=== PATIENT | female | born 1965 | race Caucasian/White ===

== ENCOUNTER 2019-11-19 20:31 | Inpatient (IN) | payer MEDICAID ==
[~2019-11-19] VITALS: Ht 154.9 cm; Wt 84.4 kg
[2019-11-19] MEDS ORDERED: KETOROLAC 30MG/ML VIAL IV STA (21:38)
[2019-11-19] MEDS ORDERED: ONDANSETRON HCL 4MG/2ML INJ IV STA (21:38)
[2019-11-19] MEDS ORDERED: SODIUM CHLORIDE 0.9% 1,000 ML IV ONE (21:38)
[2019-11-19 23:40] LABS: BASOPHILS % 0.3 % (0.0-2.0); EOSINOPHILS % 0.1 % (0.0-5.0); HEMATOCRIT. 37.6 % (36.0-48.0); HEMOGLOBIN. 12.5 g/dL (12.0-16.0); LYMPHOCYTES % 22.9 % (20.0-50.0); MEAN CORPUSCULAR HEMOGLOBIN 27.1 pg (28.0-32.0); MEAN CORPUSCULAR VOLUME 81.6 fL (81.0-99.0); MEAN PLATELET VOLUME 9.1 fl (7.4-10.4); MONOCYTES % 2.8 % (2.0-8.0); NEUTROPHILS % 73.9 % (40.0-76.0); PLATELET 154 x1000/uL (130-400)
[2019-11-19 23:46] LABS: CHLORIDE 102 mEq/L (98-107)
[2019-11-20 04:20] VITALS: BP 186/59
[2019-11-20] MEDS ORDERED: METF-416 PO (06:22)
[2019-11-20] MEDS ORDERED: SYN150 PO (06:22)
[2019-11-20] MEDS ORDERED: HYDROCODONE/ACETAMINOPHEN 10/325MG TABLET PO PRN (07:00)
[2019-11-20] MEDS ORDERED: ALBUTEROL 6.7GM HFA INHALER ORI PRN (07:00)
[2019-11-20] MEDS ORDERED: ENOXAPARIN 40MG/0.4ML SYR SUBCUT SCH (07:00)
[2019-11-20] MEDS ORDERED: ONDANSETRON HCL 4MG/2ML INJ IV PRN (07:00)
[2019-11-20] MEDS ORDERED: DIPHENHYDRAMINE 50MG/ML VIAL IV PRN (07:00)
[2019-11-20] MEDS ORDERED: DEXTROSE 50% WATER 50ML SYRINGE IV PRN (07:00)
[2019-11-20] MEDS ORDERED: CLONIDINE 0.1MG TABLET PO PRN (07:00)
[2019-11-20] MEDS ORDERED: MAGNESIUM/ALUMINUM HYDROXIDE/SIMETHICONE 30ML UDC PO PRN (07:00)
[2019-11-20] MEDS ORDERED: HYDRALAZINE 20MG/ML VIAL IV PRN (07:00)
[2019-11-20] MEDS ORDERED: LORAZEPAM 2MG/ML CPJ IV PRN (07:00)
[2019-11-20] MEDS ORDERED: MORPHINE SULFATE 2 MG/ML CPJ (NOT FOR IM USE) IV PRN (07:00)
[2019-11-20] MEDS ORDERED: CEFTRIAXONE 1 G PREMIX 50 ML IV SCH (07:00)
[2019-11-20] MEDS: ACETAMINOPHEN 325MG TABLET PO PRN ×2 (07:10→13:26)
[2019-11-20] MEDS: LEVOTHYROXINE SODIUM 150MCG TABLET PO SCH (07:20)
[2019-11-20 08:00] VITALS: BP 134/54
[2019-11-20] MEDS: INSULIN LISPRO 100 UNITS/ML SUBCUT SCH ×4 (08:04→20:45)
[2019-11-20] MEDS: BLOOD SUGAR DIAGNOSTIC STRIP TEST SCH ×4 (08:04→20:35)
[2019-11-20] MEDS: CEFTRIAXONE 1,000 MG in DEXTROSE 5% WATER 50 ML IV SCH (08:55)
[2019-11-20] MEDS ORDERED: ENOXAPARIN 30MG/0.3ML SYR SUBCUT SCH (09:00)
[2019-11-20] MEDS: AZITHROMYCIN 500 MG in DEXT 5% WATER 250 ML IV SCH (09:49)
[2019-11-20 12:00] VITALS: BP 112/56
[2019-11-20] MEDS ORDERED: PNEUMOCOCCAL 23-VAL P-SAC VAC 0.5 ML IM ONE (12:00)
[2019-11-20] MEDS: SODIUM CHLORIDE 0.9% INJ 3ML FLUSH IVF SCH ×2 (13:15→20:35)
[2019-11-20] MEDS ORDERED: DEXAMETHASONE 2MG TABLET PO SCH (14:00)
[2019-11-20 14:47] LABS: T4 FREE 1.24 ng/dL (0.76-1.46)
[2019-11-20] MEDS: DEXAMETHASONE 4MG TABLET PO SCH (15:11)
[2019-11-20 16:00] VITALS: BP 122/65
[2019-11-20] MEDS: ALBUTEROL 6.7GM HFA INHALER ORI SCH ×2 (17:07→23:50)
[2019-11-20] MEDS: ENOXAPARIN 100MG/ML SYR SUBCUT SCH (17:26)
[2019-11-20 20:00] VITALS: BP 146/71
[2019-11-21 00:02] VITALS: BP 101/43
[2019-11-21 04:00] VITALS: BP 117/54
[2019-11-21] MEDS: ALBUTEROL 6.7GM HFA INHALER ORI SCH ×3 (05:31→17:01)
[2019-11-21] MEDS: BLOOD SUGAR DIAGNOSTIC STRIP TEST SCH ×4 (05:35→21:04)
[2019-11-21] MEDS: SODIUM CHLORIDE 0.9% INJ 3ML FLUSH IVF SCH ×3 (05:36→23:29)
[2019-11-21 08:06] VITALS: BP 131/61
[2019-11-21] MEDS: ENOXAPARIN 100MG/ML SYR SUBCUT SCH ×2 (08:14→21:03)
[2019-11-21] MEDS: CEFTRIAXONE 1,000 MG in DEXTROSE 5% WATER 50 ML IV SCH (08:14)
[2019-11-21] MEDS: LEVOTHYROXINE SODIUM 150MCG TABLET PO SCH (08:14)
[2019-11-21] MEDS: DEXAMETHASONE 4MG TABLET PO SCH (08:14)
[2019-11-21] MEDS: INSULIN LISPRO 100 UNITS/ML SUBCUT SCH ×4 (08:15→23:28)
[2019-11-21 08:59] LABS: BASOPHILS % 0.3 % (0.0-2.0); HEMATOCRIT. 33.5 % (36.0-48.0); HEMOGLOBIN. 11.6 g/dL (12.0-16.0); LYMPHOCYTES % 19.7 % (20.0-50.0); MEAN CORPUSCULAR HEMOGLOBIN 27.4 pg (28.0-32.0); MEAN CORPUSCULAR VOLUME 79.4 fL (81.0-99.0); MEAN PLATELET VOLUME 8.7 fl (7.4-10.4); MONOCYTES % 3.8 % (2.0-8.0); NEUTROPHILS % 76.2 % (40.0-76.0); PLATELET 165 x1000/uL (130-400); RED BLOOD CELL COUNT 4.22 mill/uL (4.2-5.4); RED CELL DISTRIBUTION WIDTH 14.9 % (11.6-14.6)
[2019-11-21] MEDS: AZITHROMYCIN 500 MG in DEXT 5% WATER 250 ML IV SCH (09:14)
[2019-11-21 09:40] LABS: CHLORIDE 101 mEq/L (98-107)
[2019-11-21 11:31] VITALS: BP 128/65
[2019-11-21 16:00] VITALS: BP 122/72
[2019-11-21 20:00] VITALS: BP 137/62
[2019-11-21] MEDS: ACETAMINOPHEN 325MG TABLET PO PRN (21:03)
[2019-11-22] VITALS: BP 128/54
[2019-11-22] MEDS: ALBUTEROL 6.7GM HFA INHALER ORI SCH ×4 (00:04→18:07)
[2019-11-22 04:00] VITALS: BP 131/57
[2019-11-22] MEDS: SODIUM CHLORIDE 0.9% INJ 3ML FLUSH IVF SCH ×3 (06:35→21:32)
[2019-11-22] MEDS: DOCUSATE SODIUM 100MG CAPSULE PO PRN ×2 (06:46→21:26)
[2019-11-22] MEDS: BLOOD SUGAR DIAGNOSTIC STRIP TEST SCH ×4 (07:28→21:17)
[2019-11-22] MEDS: INSULIN LISPRO 100 UNITS/ML SUBCUT SCH ×4 (07:28→21:27)
[2019-11-22] MEDS: LEVOTHYROXINE SODIUM 150MCG TABLET PO SCH (08:02)
[2019-11-22] MEDS: DEXAMETHASONE 4MG TABLET PO SCH (08:03)
[2019-11-22] MEDS: CEFTRIAXONE 1,000 MG in DEXTROSE 5% WATER 50 ML IV SCH (08:03)
[2019-11-22] MEDS: ENOXAPARIN 100MG/ML SYR SUBCUT SCH ×2 (08:03→21:26)
[2019-11-22] MEDS: GUAIFENESIN 200MG/10ML SUGAR FREE UDC PO PRN (08:03)
[2019-11-22 08:20] VITALS: BP 151/72
[2019-11-22 08:30] LABS: PROTHROMBIN TIME 10.9 sec (9.6-11.0)
[2019-11-22] MEDS: AZITHROMYCIN 500 MG in DEXT 5% WATER 250 ML IV SCH (08:35)
[2019-11-22 12:13] VITALS: BP 119/53
[2019-11-22 16:15] VITALS: BP 113/57
[2019-11-22] MEDS ORDERED: REMDESIVIR 200 MG in SODIUM CHLORIDE 0.9% 250 ML IV SCH (17:00)
[2019-11-22 20:00] VITALS: BP 133/57
[2019-11-23] VITALS: BP 127/56
[2019-11-23] MEDS: ALBUTEROL 6.7GM HFA INHALER ORI SCH ×4 (00:29→17:03)
[2019-11-23 04:00] VITALS: BP 120/47
[2019-11-23] MEDS: GUAIFENESIN 200MG/10ML SUGAR FREE UDC PO PRN ×5 (04:34→21:14)
[2019-11-23] MEDS: SODIUM CHLORIDE 0.9% INJ 3ML FLUSH IVF SCH ×3 (05:59→21:14)
[2019-11-23] MEDS: INSULIN LISPRO 100 UNITS/ML SUBCUT SCH ×4 (05:59→21:42)
[2019-11-23] MEDS: BLOOD SUGAR DIAGNOSTIC STRIP TEST SCH ×4 (07:40→21:14)
[2019-11-23 08:00] VITALS: BP 124/55
[2019-11-23] MEDS: DEXAMETHASONE 4MG TABLET PO SCH (08:37)
[2019-11-23] MEDS: LEVOTHYROXINE SODIUM 150MCG TABLET PO SCH (08:37)
[2019-11-23] MEDS: AZITHROMYCIN 500 MG in DEXT 5% WATER 250 ML IV SCH (08:38)
[2019-11-23] MEDS: CEFTRIAXONE 1,000 MG in DEXTROSE 5% WATER 50 ML IV SCH (08:38)
[2019-11-23] MEDS: ENOXAPARIN 100MG/ML SYR SUBCUT SCH ×2 (08:39→21:16)
[2019-11-23] MEDS: ACETAMINOPHEN 325MG TABLET PO PRN ×2 (09:52→23:35)
[2019-11-23 12:00] VITALS: BP 125/51
[2019-11-23 13:03] LABS: CHLORIDE 100 mEq/L (98-107)
[2019-11-23] MEDS: DOCUSATE SODIUM 100MG CAPSULE PO PRN (13:03)
[2019-11-23 16:00] VITALS: BP 105/52
[2019-11-23] MEDS: REMDESIVIR 100 MG in SODIUM CHLORIDE 0.9% 250 ML IV SCH (17:03)
[2019-11-23 20:00] VITALS: BP 127/51
[2019-11-24] VITALS: BP 123/54
[2019-11-24] MEDS: ALBUTEROL 6.7GM HFA INHALER ORI SCH ×5 (00:13→23:34)
[2019-11-24 04:00] VITALS: BP 130/54
[2019-11-24] MEDS: SODIUM CHLORIDE 0.9% INJ 3ML FLUSH IVF SCH ×3 (05:26→21:26)
[2019-11-24] MEDS: GUAIFENESIN 200MG/10ML SUGAR FREE UDC PO PRN ×5 (06:03→23:53)
[2019-11-24] MEDS: BLOOD SUGAR DIAGNOSTIC STRIP TEST SCH ×4 (07:40→21:26)
[2019-11-24 08:00] VITALS: BP 136/40
[2019-11-24] MEDS: INSULIN LISPRO 100 UNITS/ML SUBCUT SCH ×4 (08:10→21:25)
[2019-11-24] MEDS: DEXAMETHASONE 4MG TABLET PO SCH (08:16)
[2019-11-24] MEDS: LEVOTHYROXINE SODIUM 150MCG TABLET PO SCH (08:16)
[2019-11-24] MEDS: ENOXAPARIN 100MG/ML SYR SUBCUT SCH ×2 (08:17→21:26)
[2019-11-24] MEDS: CEFTRIAXONE 1,000 MG in DEXTROSE 5% WATER 50 ML IV SCH (08:17)
[2019-11-24] MEDS: AZITHROMYCIN 500 MG in DEXT 5% WATER 250 ML IV SCH (08:59)
[2019-11-24] MEDS: ACETAMINOPHEN 325MG TABLET PO PRN ×2 (09:06→17:38)
[2019-11-24 12:00] VITALS: BP 132/50
[2019-11-24 12:06] LABS: CHLORIDE 102 mEq/L (98-107)
[2019-11-24 16:00] VITALS: BP 132/58
[2019-11-24] MEDS: REMDESIVIR 100 MG in SODIUM CHLORIDE 0.9% 250 ML IV SCH (17:10)
[2019-11-24 20:00] VITALS: BP 117/60
[2019-11-25] VITALS: BP 142/50
[2019-11-25 03:42] LABS: CLARITY URINE CLEAR (CLEAR); COLOR URINE YELLOW (YELLOW); KETONES URINE NEGATIVE (NEGATIVE); LEUKOCYTE ESTERASE URINE NEGATIVE (NEGATIVE); NITRITE URINE NEGATIVE (NEGATIVE); OCCULT BLOOD URINE NEGATIVE (NEGATIVE); PH URINE 6.5 (4.5-8.0); PROTEIN URINE TRACE (NEGATIVE)
[2019-11-25 03:53] LABS: *BARBITURATES SCREEN URINE NEGATIVE (NEGATIVE); *BENZODIAZEPINES SCREEN URINE NEGATIVE (NEGATIVE)
[2019-11-25 03:54] LABS: *AMPHETAMINES SCREEN URINE NEGATIVE (NEGATIVE); CANNABINOID URINE SCREEN NEGATIVE (NEGATIVE); METHADONE URINE SCREEN NEGATIVE (NEGATIVE); OPIATES URINE SCREEN NEGATIVE (NEGATIVE); PHENCYCLIDINE URINE SCREEN NEGATIVE (NEGATIVE)
[2019-11-25 04:00] VITALS: BP 122/80
[2019-11-25 04:27] LABS: *COCAINE SCREEN URINE NEGATIVE (NEGATIVE)
[2019-11-25] MEDS: SODIUM CHLORIDE 0.9% INJ 3ML FLUSH IVF SCH ×3 (05:14→20:36)
[2019-11-25] MEDS: ALBUTEROL 6.7GM HFA INHALER ORI SCH ×3 (05:14→17:50)
[2019-11-25] MEDS: BLOOD SUGAR DIAGNOSTIC STRIP TEST SCH ×4 (05:37→20:36)
[2019-11-25] MEDS: INSULIN LISPRO 100 UNITS/ML SUBCUT SCH ×4 (06:00→21:08)
[2019-11-25 06:48] LABS: CHLORIDE 106 mEq/L (98-107)
[2019-11-25 08:00] VITALS: BP 154/79
[2019-11-25] MEDS: GUAIFENESIN 200MG/10ML SUGAR FREE UDC PO PRN ×3 (08:53→21:09)
[2019-11-25] MEDS: ENOXAPARIN 100MG/ML SYR SUBCUT SCH (08:54)
[2019-11-25] MEDS: LEVOTHYROXINE SODIUM 150MCG TABLET PO SCH (08:54)
[2019-11-25] MEDS: DOCUSATE SODIUM 100MG CAPSULE PO PRN ×2 (08:59→13:06)
[2019-11-25 12:00] VITALS: BP 140/66
[2019-11-25] MEDS: ACETAMINOPHEN 325MG TABLET PO PRN ×2 (13:07→21:13)
[2019-11-25 16:00] VITALS: BP 130/67
[2019-11-25] MEDS: REMDESIVIR 100 MG in SODIUM CHLORIDE 0.9% 250 ML IV SCH (17:00)
[2019-11-25 20:00] VITALS: BP 120/68
[2019-11-25] MEDS: ENOXAPARIN 80MG/0.8ML SYR SUBCUT SCH (20:36)
[2019-11-26] VITALS: BP 129/70
[2019-11-26] MEDS: ALBUTEROL 6.7GM HFA INHALER ORI SCH ×3 (00:10→13:31)
[2019-11-26 04:00] VITALS: BP 127/68
[2019-11-26] MEDS: BLOOD SUGAR DIAGNOSTIC STRIP TEST SCH ×2 (05:50→12:40)
[2019-11-26] MEDS: SODIUM CHLORIDE 0.9% INJ 3ML FLUSH IVF SCH ×2 (05:50→14:33)
[2019-11-26] MEDS: INSULIN LISPRO 100 UNITS/ML SUBCUT SCH ×2 (05:56→12:42)
[2019-11-26 06:19] LABS: CHLORIDE 107 mEq/L (98-107)
[2019-11-26 08:00] VITALS: BP 141/55
[2019-11-26] MEDS: GUAIFENESIN 200MG/10ML SUGAR FREE UDC PO PRN (08:38)
[2019-11-26] MEDS: ENOXAPARIN 80MG/0.8ML SYR SUBCUT SCH (08:38)
[2019-11-26] MEDS: LEVOTHYROXINE SODIUM 150MCG TABLET PO SCH (08:38)
[2019-11-26] MEDS ORDERED: DEXAMETHASONE 4MG TABLET PO SCH (09:00)
[2019-11-26 12:00] VITALS: BP 131/60
[2019-11-26] MEDS: REMDESIVIR 100 MG in SODIUM CHLORIDE 0.9% 250 ML IV SCH (14:32)
== END 2019-11-26 17:20 | disposition home or self-care (01) | DRG 720 ==
LOC: ER 20:31 → EDBEDREQ 11-20 01:01 → ENRESERV 11-20 01:38 → 7WST 11-20 04:55
PROVIDERS: ADMIT Internal Medicine; ATTEND Internal Medicine
PROC: XW033E5 Introduction of Remdesivir Anti-infective into Peripheral Vein, Percutaneous Approach, New Technology Group 5 (ICD-10-PCS; principal; 2019-11-22)
DX: A41.89 Other specified sepsis (principal); U07.1 COVID-19; E78.5 Hyperlipidemia, unspecified; I10 Essential (primary) hypertension; J12.89 Other viral pneumonia; J96.00 Acute respiratory failure, unspecified whether with hypoxia or hypercapnia; E03.9 Hypothyroidism, unspecified; E11.9 Type 2 diabetes mellitus without complications; C55 Malignant neoplasm of uterus, part unspecified; F41.9 Anxiety disorder, unspecified; R74.0 Nonspecific elevation of levels of transaminase and lactic acid dehydrogenase [LDH]; Z79.84 Long term (current) use of oral hypoglycemic drugs; Z85.42 Personal history of malignant neoplasm of other parts of uterus; Z79.890 Hormone replacement therapy; Z92.3 Personal history of irradiation; Z79.899 Other long term (current) drug therapy
CPT/HCPCS: 36415; 71045; 80053; 80305; 81003; 82962; 83036; 83880; 84439; 84443; 84481; 84484; 85025; 87635; 90732; 93005; 99285; J0456; J0696; J1650; J1815; J1885; J2405; J7030; J7050; J7060; J8540; Q9957

== ENCOUNTER 2021-07-01 21:26 | Emergency (ER) | payer MEDICAID ==
[~2021-07-01] VITALS: Ht 160 cm; Wt 91.0 kg
[~2021-07-01 21:26] MED LIST: METF-416 PO; SYN150 PO
[2021-07-02] MEDS ORDERED: CLONIDINE 0.2MG TABLET PO ONE
[2021-07-02 03:00] VITALS: BP 136/78
== END 2021-07-02 03:06 | disposition home or self-care (01) ==
LOC: ER 21:26
DX: I16.0 Hypertensive urgency (principal); E11.65 Type 2 diabetes mellitus with hyperglycemia; Z79.01 Long term (current) use of anticoagulants
CPT/HCPCS: 82962; 99283

== ENCOUNTER 2022-04-11 14:17 | Emergency (ER) | payer MEDICAID, OTHER ==
[~2022-04-11] VITALS: Ht 160 cm; Wt 93.0 kg
[2022-04-11 14:26] VITALS: BP 124/91
== END 2022-04-11 16:39 | disposition left against medical advice (07) ==
LOC: ER 14:17
DX: Z53.21 Procedure and treatment not carried out due to patient leaving prior to being seen by health care provider (principal)